=== PATIENT | male | born 2000 | race Hispanic/Latino ===

== ENCOUNTER 2018-03-26 04:17 | Emergency (ER) | payer OTHER, SELFPAY ==
[2018-03-26] MEDS ORDERED: Ondansetron ODT 8 MG TAB ONE (04:42)
[2018-03-26] MEDS ORDERED: Lidocaine Viscous Sol 2% 15 ml UD Cup ONE (04:42)
[2018-03-26] MEDS ORDERED: Mag-Al 1200 mg/1200 mg/30 ML UDCUP ONE (04:42)
== END 2018-03-26 05:58 | disposition home or self-care (01) ==
LOC: ERS 04:17
DX: A08.4 Viral intestinal infection, unspecified (principal); F90.9 Attention-deficit hyperactivity disorder, unspecified type; Z71.6 Tobacco abuse counseling
CPT/HCPCS: 99406

== ENCOUNTER 2021-01-21 05:58 | Emergency (ER) | payer SELFPAY ==
[2021-01-21] MEDS ORDERED: Acetaminophen 500 MG TAB ONE (06:16)
[2021-01-21] MEDS ORDERED: diphenhydrAMINE 50 MG/ML VIAL ONE (06:16)
[2021-01-21] MEDS ORDERED: Metoclopramide HCl 10 MG/2 ML VIAL ONE (06:16)
[2021-01-21] MEDS ORDERED: diphenhydrAMINE 12.5 MG/5 ML UDCUP ONE (06:16)
[2021-01-21 06:57] LABS: #Lymphocytes 1.3 thou/uL (1.20-3.40); #Neutrophils 10.3 thou/uL (1.40-6.50); %Eosinophils 0.2 % (0.0-10.0); %Lymphocytes 10.1 % (21.0-51.0); %Monocytes 7.8 % (0.0-10.0); %Neutrophils 81.9 % (42.0-75.0); Hemoglobin 14.8 g/dL (14.0-18.0); Mean Corpuscular Hemoglobin 30.3 pg (27.0-31.0); Mean Platelet Volume 7.3 fL (7.4-10.4); Platelet Count 264 thou/uL (130-400); RBC Distribution Width 13.3 % (11.5-14.5); Red Blood Cell (RBC) Count 4.89 mill/uL (4.70-6.10); White Blood Cell (WBC) Count 12.6 thou/uL (4.8-10.8)
[2021-01-21 07:21] LABS: ALT (SGPT) 15 U/L (8-55); AST (SGOT) 15 U/L (5-34); Albumin 3.6 g/dL (3.5-5.0); Alkaline Phosphatase 72 U/L (40-110); Anion Gap 8 mmol/L (10-20); BUN (Urea Nitrogen) 5 mg/dL (8.9-20.6); Bilirubin, Total 0.5 mg/dL (0.2-1.2); Calc. Creatinine Clearance 0 mL/min (70-130); Calcium 9.5 mg/dL (7.8-10.44); Carbon Dioxide 28 mmol/L (22-29); Chloride 101 mmol/L (98-107); Globulin 3.9 g/dL (2.4-3.5); Glucose 119 mg/dL (70-105); Potassium 3.7 mmol/L (3.5-5.1); Protein, Total 7.5 g/dL (6.0-8.3); Sodium 133 mmol/L (136-145)
[2021-01-21 13:03] LABS: SARS-CoV-2 PCR by NAA Not Detected (NotDetected)
== END 2021-01-21 09:40 | disposition home or self-care (01) ==
LOC: ERS 05:58
DX: J02.9 Acute pharyngitis, unspecified (principal); Z20.822 Contact with and (suspected) exposure to COVID-19; F90.9 Attention-deficit hyperactivity disorder, unspecified type; G43.909 Migraine, unspecified, not intractable, without status migrainosus; F17.210 Nicotine dependence, cigarettes, uncomplicated
CPT/HCPCS: 36415; 80053; 83605; 85025; 87040; 87081; 87430; 96365; 96366; 96368; 96375; J1200; J2765; Q0163; U0003; U0005

== ENCOUNTER 2021-02-11 02:57 | Emergency (ER) | payer OTHER, SELFPAY ==
[2021-02-11 04:16] LABS: Bilirubin Negative (Negative); Blood, Urine Negative (Negative); Clarity Clear (Clear); Glucose, Urine (Dipstick) Normal (Negative); Ketone, Urine Negative (Negative); Leukocyte Negative Leu/uL (Negative); Nitrite Negative (Negative); Protein, Urine (Dipstick) 20 mg/dL (Neg-Trace); Specific Gravity, Urine 1.034 (1.002-1.036); pH, Urine 6.5 (5.0-9.0)
[2021-02-11] MEDS ORDERED: Bicillin LA 2.4 MILL.UNITS/4 ML SYRINGE ONE (04:42)
[2021-02-11 11:31] LABS: Syphilis Antibody REACTIVE (Nonreactive)
[2021-02-11 11:32] LABS: Syphilis Antibody Index 11.43 S/CO (<1.00 Non-Reactive)
[2021-02-11 21:42] LABS: Chlam.trachomatis by PCR,Urine Not Detected (NotDetected)
== END 2021-02-11 04:55 | disposition home or self-care (01) ==
LOC: ERS 02:57
DX: N48.89 Other specified disorders of penis (principal); F17.210 Nicotine dependence, cigarettes, uncomplicated
CPT/HCPCS: 36415; 81003; 86593; 86780; 87491; 87591; 96372; 99283; J0561